=== PATIENT | female | born 1985 | race Caucasian/White ===

== ENCOUNTER 2021-08-01 16:57 | Outpatient (CLI) | payer OTHER ==
[2021-08-01 17:40] VITALS: BP 125/79; PULSE 89; RESP 16; TEMP 97.6
--- NOTE | 2021-08-05 07:26 | P.MSEPDOC ---
Presenting Problems - Arrival Data Date of Arrival on Unit: 08/01/21 Time of Arrival on Unit: 16:57 Mode of Transport: Ambulatory - Complaint OB-Reason for Admission/Chief Complaint: Pain Comment: lower abd and vaginal/rectal shooting pains Medical History - Information : 2 Para: 1 Number of Living Children: 1 - Gestational Age Gestational Age by CHARISSE (wks/days): 18 Weeks and 5 Days Review of Systems - Review of Systems Constitutional: No problems Breast: No problems ENT: No problems Cardiovascular: No problems Respiratory: No problems Gastrointestinal: No problems Genitourinary: No problems Musculoskeletal: No problems Neurological: No problems Skin: No problems Vital Signs - Temperature Temperature: 97.6 F Temperature Source: Temporal Artery Scan - Pulse Right Sitting Brachial Pulse Rate: 89 Pulse Assessment Method: Automatic Cuff - Respirations Respiratory Rate: 16 Oxygen Delivery Method: Room Air O2 Sat by Pulse Oximetry: 100 - Blood Pressure Right Arm Sitting Blood Pressure: 125/79 Blood Pressure Mean: 94 Blood Pressure Source: Automatic Cuff Medical Screen Scoring - Cervical Exam Dilation (cm): 0 Effacement (%): 0 Station: -3 Membranes: Intact - Uterine Contractions Frequency From (mins): 0 Frequency To (mins): 0 Duration From (seconds): 0 Duration To (seconds): 0 Intensity: Absent - Assessment - Baby A Baseline FHR: 138 Physician Notification - Physician Notified Physician Notified Date: 08/01/21 Physician Notified Time: 17:06 Physician: Cherie Young New Order Received: Yes - Notification Comment Comment: doppler fht's, check cervix Maternal Triage Index - Maternal Triage Index Presenting for scheduled procedure w/no complaint: No - Stat/Priority 1 Stat Priority 1: No - Urgent/Priority 2 Urgent Priority 2: No - Prompt/Priority 3 Prompt Priority 3: No - Non-Urgent/Priority 4 Non-Urgent Priority 4: Yes Criteria Met for Priority 4: non viable gestation, ligament pain Disposition - Disposition OB Disposition: Discharge to home Discharge Date: 08/01/21 Discharge Time: 17:25 I agree with the RN Medical Screening Exam: Yes Case reviewed; plan agreed upon as documented in EMR&OBIX.: Yes Diagnosis: GAS PAIN
== END 2021-08-01 17:25 | disposition home or self-care (01) ==
LOC: FBPOP 16:57
PROVIDERS: ATTEND Obstetrics & Gynecology
DX: O99.611 Diseases of the digestive system complicating pregnancy, first trimester (principal); Z3A.18 18 weeks gestation of pregnancy
CPT/HCPCS: 99203

== ENCOUNTER 2023-03-06 16:19 | Emergency (ER) | payer OTHER ==
--- NOTE | 2023-03-06 17:59 | ED ---
Recheck HPI - General Chief Complaint: Recheck/Abnormal Lab/Rx Stated Complaint: chest and throat tight Time Seen by Provider: 03/06/23 17:54 Source: patient, RN notes reviewed, old records reviewed Mode of arrival: ambulatory Limitations: no limitations - History of Present Illness Initial Comments: This is a 29-year-old female to the emergency department for evaluation. Patient presents with multiple nonspecific symptoms. No medical history takes no medications. Patient has tingling and tightness over face throat neck and chest. The symptoms happened initially 3 days ago and again today both happened during long car rides. Patient symptoms continue to persist on arrival to the emergency department. Otherwise no travel show sick contacts no medical history takes no medications. Symptoms are improving well here in the ER MD Complaint: other (Patient complains of numbness tingling and tightness) -: minutes(s) Symptoms Since Prior Visit: no new symptoms Context: planned re-check (No prior evaluation is no time with similar symptoms) Associated Symptoms: none Treatments Prior to Arrival: other (0) - Related Data Home Medications Medication Instructions Recorded Confirmed clonazePAM [KlonoPIN] 0.25 mg PO TID PRN 09/16/15 09/16/15 clonazePAM [KlonoPIN] 2 mg PO DAILY@2100 PRN 09/16/15 09/16/15 Previous Rx's Medication Instructions Recorded Escitalopram [Lexapro] 5 mg PO DAILY #14 tab 05/28/15 Mupirocin 2% Nasal Oint [Bactroban 1 applic NASAL TID #15 tube 09/16/15 Nasal Oint] Allergies Allergy/AdvReac Type Severity Reaction Status Date / Time Egg Derived Allergy Severe Unknown Verified 03/06/23 16:22 Sulfa (Sulfonamide Allergy Rash/Hives Verified 03/06/23 16:22 Antibiotics) amoxicillin trihydrate AdvReac Intermediate Nausea & Verified 03/06/23 16:22 [From Augmentin] Vomiting potassium clavulanate AdvReac Intermediate Nausea & Verified 03/06/23 16:22 [From Augmentin] Vomiting Review of Systems ROS Statement: Those systems with pertinent positive or pertinent negative responses have been documented in the HPI. ROS Other: All systems not noted in ROS Statement are negative. Past Medical History Past Medical History: Asthma, Supraventricular Tachycardia (SVT) Additional Past Medical History / Comment(s): intersticial cystitis, IBS with colon polyp History of Any Multi-Drug Resistant Organisms: None Reported Additional Past Surgical History / Comment(s): wisdom teeth pulled, polyp Additional Past Anesthesia/Blood Transfusion Reaction / Comment(s): Versed made it difficult to get O2 and b/p back up. Past Psychological History: Anxiety, Panic Disorder Smoking Status: Never smoker Past Alcohol Use History: Occasional Past Drug Use History: Marijuana - Past Family History Mother Family Medical History: Thyroid Disorder Additional Family Medical History / Comment(s): Hypothyroidism. Father Family Medical History: Coronary Artery Disease (CAD), Hypertension Additional Family Medical History / Comment(s): stent in heart,. testicular cancer in his 20's,. 8 pound tumor on aorta unknown if cancer. sinusitis. gout General Exam Limitations: no limitations General appearance: alert, in no apparent distress Head exam: Present: atraumatic, normocephalic, normal inspection Eye exam: Present: normal appearance, PERRL, EOMI. Absent: scleral icterus, conjunctival injection, periorbital swelling ENT exam: Present: normal exam, mucous membranes moist Neck exam: Present: normal inspection. Absent: tenderness, meningismus, lymphadenopathy Respiratory exam: Present: normal lung sounds bilaterally. Absent: respiratory distress, wheezes, rales, rhonchi, stridor Cardiovascular Exam: Present: regular rate, normal rhythm, normal heart sounds. Absent: systolic murmur, diastolic murmur, rubs, gallop, clicks GI/Abdominal exam: Present: soft, normal bowel sounds. Absent: distended, tenderness, guarding, rebound, rigid Extremities exam: Present: normal inspection, full ROM, normal capillary refill. Absent: tenderness, pedal edema, joint swelling, calf tenderness Back exam: Present: normal inspection Neurological exam: Present: alert, oriented X3, CN II-XII intact Psychiatric exam: Present: normal affect, normal mood Skin exam: Present: warm, dry, intact, normal color. Absent: rash Course Vital Signs 03/06/23 03/06/23 03/06/23 16:23 21:11 21:39 Temperature 98.4 F 98.2 F 98.6 F Pulse Rate 87 76 72 Respiratory 18 16 16 Rate Blood Pressure 148/91 128/73 127/78 O2 Sat by Pulse 100 99 99 Oximetry - Reevaluation(s) Reevaluation #1: 03/06/23 22:07 Medical records reviewed Reevaluation #2: 03/06/23 22:07 Patient has her improvement, resolution of symptoms here in the ER Reevaluation #3: 03/06/23 22:08 Patient informed results and questions answered Reevaluation #4: 03/06/23 17:58 Was pt. sent in by a medical professional or institution? @ -no Did you speak to anyone other than the patient for history? @ -no Did you review nursing and triage notes? @ -agree Were old charts reviewed? @ -no Differential Diagnosis? @ -prior EKG interpreted by me (3pts min.)? @ -yes X-rays interpreted by me (1pt min.)? @ -no CT interpreted by me (1pt min.)? @ -no U/S interpreted by me (1pt. min.)? @ -no What testing was considered but not performed? (CT, X-rays, U/S, labs)? Why? @ no What meds were considered but not given? Why? @ -none Did you discuss the management of the patient with other professionals? @ -no Did you reconcile home meds? @ -no Was smoking cessation discussed for >3mins.? @ -no Was critical care preformed (if so, how long)? @ -no Were there social determinants of health that impacted care today? How? (Homelessness, low income, unemployed, alcoholism, drug addiction, transportat ion, low edu. Level, literacy, decrease access to med. care, skilled nursing, rehab)? @ -no Was there de-escalation of care discussed even if they declined? (Discuss DNR or withdrawal of care, Hospice)? @ -no What co-morbidities impacted this encounter? (DM, HTN, Smoking, COPD, CAD, Cancer, CVA, Hep., AIDS, mental health diagnosis, sleep apnea, morbid obesity)? @ -none Was patient admitted / discharged? @ -dc Undiagnosed new problem with uncertain prognosis? @ -no Drug Therapy requiring intensive monitoring for toxicity (Heparin, Nitro, Insulin, Cardizem)? @ -none Were any procedures done? @ -no Diagnosis/symptom? @ -Paresthesia Acute, or Chronic, or Acute on Chronic? @ -acute Uncomplicated (without systemic symptoms) or Complicated (systemic symptoms)? @ -uncomplicated Side effects of treatment? @ -none Exacerbation, Progression, or Severe Exacerbation] @ - Poses a threat to life or bodily function? @ -no 03/06/23 22:08 Medical Decision Making - Medical Decision Making 37 female to the emergency department for evaluation of all tightness facial tightness neck tightness throat tightness chest tightness. No significant sympt oms here in the ER, no objective findings on physical exam and testing is normal. Patient can be discharged home - Lab Data Result diagrams: 03/06/23 19:26 03/06/23 19:26 Lab Results 03/06/23 03/06/23 03/06/23 Range/Units 19:00 19:26 19:26 WBC 10.2 (3.8-10.6) k/uL RBC 5.01 (3.80-5.40) m/uL Hgb 14.4 (11.4-16.0) gm/dL Hct 43.7 (34.0-46.0) % MCV 87.1 (80.0-100.0) fL MCH 28.7 (25.0-35.0) pg MCHC 32.9 (31.0-37.0) g/dL RDW 13.6 (11.5-15.5) % Plt Count 379 (150-450) k/uL MPV 7.0 Neutrophils % 58 % Lymphocytes % 33 % Monocytes % 6 % Eosinophils % 1 % Basophils % 0 % Neutrophils # 5.9 (1.3-7.7) k/uL Lymphocytes # 3.3 (1.0-4.8) k/uL Monocytes # 0.6 (0-1.0) k/uL Eosinophils # 0.1 (0-0.7) k/uL Basophils # 0.0 (0-0.2) k/uL VBG pH 7.34 (7.31-7.41) VBG pCO2 42 (37-51) mmHg VBG HCO3 22 L (24-28) mmol/L Carbon Monoxide, Quant (<10.0) % Sodium 138 (137-145) mmol/L Potassium 4.0 (3.5-5.1) mmol/L Chloride 106 (98-107) mmol/L Carbon Dioxide 22 (22-30) mmol/L Anion Gap 10 mmol/L BUN 12 (7-17) mg/dL Creatinine 0.80 (0.52-1.04) mg/dL Est GFR (CKD-EPI)AfAm >90 (>60 ml/min/1.73 sqM) Est GFR (CKD-EPI)NonAf >90 (>60 ml/min/1.73 sqM) Glucose 90 (74-99) mg/dL Calcium 9.0 (8.4-10.2) mg/dL Phosphorus 3.6 (2.5-4.5) mg/dL Magnesium 2.1 (1.6-2.3) mg/dL Total Bilirubin 0.5 (0.2-1.3) mg/dL AST 21 (14-36) U/L ALT 21 (4-34) U/L Alkaline Phosphatase 79 (38-126) U/L Troponin I (0.000-0.034) ng/mL Total Protein 7.2 (6.3-8.2) g/dL Albumin 4.5 (3.5-5.0) g/dL 03/06/23 03/06/23 Range/Units 19:26 19:26 WBC (3.8-10.6) k/uL RBC (3.80-5.40) m/uL Hgb (11.4-16.0) gm/dL Hct (34.0-46.0) % MCV (80.0-100.0) fL MCH (25.0-35.0) pg MCHC (31.0-37.0) g/dL RDW (11.5-15.5) % Plt Count (150-450) k/uL MPV Neutrophils % % Lymphocytes % % Monocytes % % Eosinophils % % Basophils % % Neutrophils # (1.3-7.7) k/uL Lymphocytes # (1.0-4.8) k/uL Monocytes # (0-1.0) k/uL Eosinophils # (0-0.7) k/uL Basophils # (0-0.2) k/uL VBG pH (7.31-7.41) VBG pCO2 (37-51) mmHg VBG HCO3 (24-28) mmol/L Carbon Monoxide, Quant 1.3 (<10.0) % Sodium (137-145) mmol/L Potassium (3.5-5.1) mmol/L Chloride (98-107) mmol/L Carbon Dioxide (22-30) mmol/L Anion Gap mmol/L BUN (7-17) mg/dL Creatinine (0.52-1.04) mg/dL Est GFR (CKD-EPI)AfAm (>60 ml/min/1.73 sqM) Est GFR (CKD-EPI)NonAf (>60 ml/min/1.73 sqM) Glucose (74-99) mg/dL Calcium (8.4-10.2) mg/dL Phosphorus (2.5-4.5) mg/dL Magnesium (1.6-2.3) mg/dL Total Bilirubin (0.2-1.3) mg/dL AST (14-36) U/L ALT (4-34) U/L Alkaline Phosphatase (38-126) U/L Troponin I <0.012 (0.000-0.034) ng/mL Total Protein (6.3-8.2) g/dL Albumin (3.5-5.0) g/dL - EKG Data -: EKG Interpreted by Me (EKG is sinus 72 [place] 152 QRS 92 QTC 414) Disposition Clinical Impression: Paresthesia Disposition: HOME SELF-CARE Condition: Good Instructions (If sedation given, give patient instructions): Paresthesia (ED) Is patient prescribed a controlled substance at d/c from ED?: No Referrals: Caryl Enciso MD [Primary Care Provider] - 1-2 days Time of Disposition: 21:00
[2023-03-06 19:57] LABS: Basophils % (A) 0 %; Eosinophils # (A) 0.1 k/uL (0-0.7); Eosinophils % (A) 1 %; HCT 43.7 % (34.0-46.0); HGB 14.4 gm/dL (11.4-16.0); Lymphocytes # (A) 3.3 k/uL (1.0-4.8); Lymphocytes % (A) 33 %; MCH 28.7 pg (25.0-35.0); MCHC 32.9 g/dL (31.0-37.0); MCV 87.1 fL (80.0-100.0); Monocytes # (A) 0.6 k/uL (0-1.0); Monocytes % (A) 6 %; Neutrophils # (A) 5.9 k/uL (1.3-7.7); Neutrophils % (A) 58 %; Platelet Count 379 k/uL (150-450); RBC 5.01 m/uL (3.80-5.40); RDW 13.6 % (11.5-15.5); WBC 10.2 k/uL (3.8-10.6)
[2023-03-06 20:01] LABS: ALT 21 U/L (4-34); AST 21 U/L (14-36); African American GFR (CKD) >90 (>60 ml/min/1.73 sqM); Albumin 4.5 g/dL (3.5-5.0); Alkaline Phosphatase 79 U/L (38-126); Anion Gap 10 mmol/L; Blood Urea Nitrogen 12 mg/dL (7-17); Carbon Dioxide 22 mmol/L (22-30); Chloride 106 mmol/L (98-107); Glucose 90 mg/dL (74-99); Magnesium 2.1 mg/dL (1.6-2.3); Non-African American GFR(CKD) >90 (>60 ml/min/1.73 sqM); Phosphorus 3.6 mg/dL (2.5-4.5); Sodium 138 mmol/L (137-145); Total Bilirubin 0.5 mg/dL (0.2-1.3); Total Protein 7.2 g/dL (6.3-8.2)
[2023-03-06 20:47] LABS: VBG PH 7.34 (7.31-7.41)
[2023-03-06 21:12] VITALS: RESP 16
[2023-03-06 21:41] VITALS: BP 127/78; PULSE 72; TEMP 98.6
== END 2023-03-06 21:41 | disposition home or self-care (01) ==
LOC: EC 16:19
DX: R20.2 Paresthesia of skin (principal); J45.909 Unspecified asthma, uncomplicated; F41.9 Anxiety disorder, unspecified; F12.90 Cannabis use, unspecified, uncomplicated; Z91.012 Allergy to eggs; Z88.2 Allergy status to sulfonamides; Z88.0 Allergy status to penicillin; Z88.1 Allergy status to other antibiotic agents
CPT/HCPCS: 36415; 80053; 82375; 82803; 83735; 84100; 84484; 85025; 93005; 99283

== ENCOUNTER 2025-02-26 09:03 | Emergency (ER) | payer OTHER ==
[2025-02-26 09:08] VITALS: TEMP 98.2
[2025-02-26] MEDS ORDERED: RX INFO: IV CONTRAST WAS GIVEN 1 EACH MISC MISCELLANE PRN (10:14)
[2025-02-26] MEDS: DEXAMETHASONE SOD PHOSPHATE 10 MG/ML 1 ML VIAL IVP STA (10:39)
[2025-02-26] MEDS: SODIUM CHLORIDE 0.9% 1,000 ML IV ONE (10:39)
[2025-02-26] MEDS: PROCHLORPERAZINE INJ 10 MG/2 ML VIAL IVP STA (10:40)
[2025-02-26] MEDS: diphenhydrAMINE 50 MG/ML 1 ML VIAL IVP STA (10:40)
[2025-02-26] MEDS: KETOROLAC 15 MG/ML 1 ML VIAL IVP STA (10:40)
[2025-02-26 10:44] LABS: Basophils # (A) 0.07 10*3/uL (0.00-0.10); Basophils % (A) 0.7 %; Eosinophils # (A) 0.15 10*3/uL (0.04-0.35); Eosinophils % (A) 1.4 %; HGB 13.6 g/dL (12.0-15.0); Lymphocytes # (A) 4.61 10*3/uL (0.90-5.00); Lymphocytes % (A) 44.2 %; MCH 29.5 pg (27.0-32.0); MCHC 33.2 g/dL (32.0-37.0); MCV 88.9 fL (80.0-97.0); Mean Platelet Volume 9.3 fL (9.5-12.2); Monocytes # (A) 1.01 10*3/uL (0.20-1.00); Monocytes % (A) 9.7 %; Neutrophils # (A) 4.56 10*3/uL (1.80-7.70); Neutrophils % (A) 43.7 %; Platelet Count 396 10*3/uL (140-440); RBC 4.61 10*6/uL (4.10-5.20); RDW 13.4 % (11.5-14.5); WBC 10.43 10*3/uL (4.50-10.00)
[2025-02-26 10:54] LABS: ALT 17 U/L (4-34); AST 18 U/L (14-36); African American GFR (CKD) >90 (>60 ml/min/1.73 sqM); Albumin 4.2 g/dL (3.5-5.0); Alkaline Phosphatase 48 U/L (38-126); Anion Gap 8 mmol/L; Blood Urea Nitrogen 11 mg/dL (7-17); C Reactive Protein <0.5 mg/dL (<1.0); Calcium 9.1 mg/dL (8.4-10.2); Carbon Dioxide 24 mmol/L (22-30); Chloride 107 mmol/L (98-107); Glucose 84 mg/dL (74-99); Non-African American GFR(CKD) >90 (>60 ml/min/1.73 sqM); Potassium 3.8 mmol/L (3.5-5.1); Sodium 139 mmol/L (137-145); Total Bilirubin 0.6 mg/dL (0.2-1.3); Total Protein 6.7 g/dL (6.3-8.2)
[2025-02-26 11:04] LABS: HCG,Qualitative Serum Not Detected
[2025-02-26 11:07] VITALS: RESP 12
--- NOTE | 2025-02-26 11:28 | ED ---
Dizziness HPI - General Chief Complaint: Dizziness Stated Complaint: Dizziness,headache Time Seen by Provider: 02/26/25 09:11 Source: patient, RN notes reviewed Mode of arrival: ambulatory Limitations: no limitations - History of Present Illness Initial Comments: This is a 39-year-old female who presents to the emergency department for dizziness, headaches, and confusion. Patient states that for the last couple of months she has been dealing with pain and pressure in the back of her head going down her neck. This seems to be occurring intermittently. She notices mental fog and confusion with this as well. She has been increasingly forgetful. A dditionally, she has noticed other arbitrary symptoms such as rashes that breakout across her body. She had gone to an emergency department recently due to neurological symptoms with numbness down the right arm. They did a CT scan and laboratory workup which was negative. She followed up with her neurologist who ordered an MRI to be done in the next couple of weeks. She is concerned that symptoms are continuing to persist and they do not know what is causing it. They had also mentioned testing her for Lyme disease. She does note that when she is treated with steroids she seems to have some improvement. She has also noticed that she constantly feels like things are crawling around her body and at one point she had a bowel movement with a worm in it. They were then treating her with antiparasitic medication as well. - Related Data Home Medications Medication Instructions Recorded Confirmed clonazePAM [KlonoPIN] 0.25 mg PO TID PRN 09/16/15 09/16/15 clonazePAM [KlonoPIN] 2 mg PO DAILY@2100 PRN 09/16/15 09/16/15 Previous Rx's Medication Instructions Recorded Escitalopram [Lexapro] 5 mg PO DAILY #14 tab 05/28/15 Mupirocin 2% Nasal Oint [Bactroban 1 applic NASAL TID #15 tube 09/16/15 Nasal Oint] Cyclobenzaprine [Flexeril] 5 - 10 mg PO TID PRN #30 tablet 02/26/25 Ketorolac [Toradol] 10 mg PO Q6HR PRN #15 tab 02/26/25 Allergies Allergy/AdvReac Type Severity Reaction Status Date / Time Egg Derived Allergy Severe Unknown Verified 03/06/23 16:22 Sulfa (Sulfonamide Allergy Rash/Hives Verified 03/06/23 16:22 Antibiotics) amoxicillin trihydrate AdvReac Intermediate Nausea & Verified 03/06/23 16:22 [From Augmentin] Vomiting potassium clavulanate AdvReac Intermediate Nausea & Verified 03/06/23 16:22 [From Augmentin] Vomiting Review of Systems ROS Statement: Those systems with pertinent positive or pertinent negative responses have been documented in the HPI. ROS Other: All systems not noted in ROS Statement are negative. Past Medical History Past Medical History: Asthma, Supraventricular Tachycardia (SVT) Additional Past Medical History / Comment(s): intersticial cystitis, IBS with colon polyp History of Any Multi-Drug Resistant Organisms: None Reported Additional Past Surgical History / Comment(s): wisdom teeth pulled, polyp Additional Past Anesthesia/Blood Transfusion Reaction / Comment(s): Versed made it difficult to get O2 and b/p back up. Past Psychological History: Anxiety, Panic Disorder Smoking Status: Never smoker Past Alcohol Use History: Occasional Past Drug Use History: Marijuana - Past Family History Mother Family Medical History: Thyroid Disorder Additional Family Medical History / Comment(s): Hypothyroidism. Father Family Medical History: Coronary Artery Disease (CAD), Hypertension Additional Family Medical History / Comment(s): stent in heart,. testicular cancer in his 20's,. 8 pound tumor on aorta unknown if cancer. sinusitis. gout General Exam Limitations: no limitations General appearance: alert, in no apparent distress Head exam: Present: atraumatic, normocephalic, normal inspection Eye exam: Present: normal appearance, PERRL, EOMI. Absent: scleral icterus, conjunctival injection, periorbital swelling Respiratory exam: Present: normal lung sounds bilaterally. Absent: respiratory distress, wheezes, rales, rhonchi, stridor Cardiovascular Exam: Present: regular rate, normal rhythm GI/Abdominal exam: Present: soft, normal bowel sounds. Absent: distended, tenderness, guarding, rebound, rigid Neurological exam: Present: alert, oriented X3, CN II-XII intact Psychiatric exam: Present: normal affect, normal mood Skin exam: Present: warm, dry, intact, normal color. Absent: rash Course Vital Signs 02/26/25 02/26/25 02/26/25 09:04 10:47 13:05 Temperature 98.2 F Pulse Rate 105 H 94 75 Respiratory 20 12 12 Rate Blood Pressure 152/94 123/87 107/75 O2 Sat by Pulse 97 100 99 Oximetry Medical Decision Making - Medical Decision Making This is a 39 year old female who presents to the emergency department for headaches and dizziness. Was pt. sent in by a medical professional or institution? @ -No Did you speak to anyone other than the patient for history? @ -No Did you review nursing and triage notes? @ -Yes, and I agree, it is accurate with regards to the patient's symptoms. Were old charts reviewed? @ -No Differential Diagnosis? @ -Differential Headache: Migraine, tension, cluster, carbon monoxide, central venous thrombosis, pension karma temporal arteritis, acute closure glaucoma, intercranial hemorrhage, mastoiditis, sinusitis, head injury, this is not meant to be an all-inclusive list. EKG interpreted by me (3pts min.)? @ -Not obtained X-rays interpreted by me (1pt min.)? @ -Not obtained CT interpreted by me (1pt min.)? @ -CT scan of the brain and cervical spine obtained. My interpretation identifies no acute intracranial hemorrhage or cervical spine fracture. U/S interpreted by me (1pt. min.)? @ -Not obtained What testing was considered but not performed? (CT, X-rays, U/S, labs)? Why? @ -None What meds were considered but not given? Why? @ -None Did you discuss the management of the patient with other professionals? @ -No Did you reconcile home meds? @ -No Was smoking cessation discussed for >3mins.? @ -No Was critical care preformed (if so, how long)? @ -No Were there social determinants of health that impacted care today? How? (Homelessness, low income, unemployed, alcoholism, drug addiction, transporta tion, low edu. Level, literacy, decrease access to med. care, [facility], rehab)? @ -No Was there de-escalation of care discussed even if they declined? (Discuss DNR or withdrawal of care, Hospice)? @ -No What co-morbidities impacted this encounter? (DM, HTN, Smoking, COPD, CAD, Cancer, CVA, Hep., AIDS, mental health diagnosis, sleep apnea, morbid obesity)? @ -None Was patient admitted / discharged? @ -Discharged. Lab work unremarkable. CT scan of the brain and C-spine obtained revealing no acute process. Symptoms were treated in the emergency department. Discussed the possibility of MS or other autoimmune problem contributing to her multiple nonspecific symptoms. She does have an MRI scheduled for 03/14 and I advised she follow-up as scheduled. Toradol and Flexeril prescribed for management of any additional symptoms. Patient discharged home in stable condition. Case discussed with ED attending Dr. Cain. Return precautions reviewed in depth, the patient is instructed to return to the emergency department with any new, worsening, or concerning symptoms. Patient verbalized understanding. Undiagnosed new problem with uncertain prognosis? @ -None Drug Therapy requiring intensive monitoring for toxicity (Heparin, Nitro, Insulin, Cardizem)? @ -None Were any procedures done? @ -None Diagnosis/symptom? @ -Headache, dizziness, neck pain Acute, or Chronic, or Acute on Chronic? @ -Chronic Uncomplicated (without systemic symptoms) or Complicated (systemic symptoms)? @ -Uncomplicated Side effects of treatment? @ -None Exacerbation, Progression, or Severe Exacerbation] @ -Exacerbation Poses a threat to life or bodily function? @ -Unlikely - Lab Data Result diagrams: 02/26/25 10:34 02/26/25 10:34 Lab Results 02/26/25 02/26/25 Range/Units 10:34 10:34 WBC 10.43 H (4.50-10.00) 10*3/uL RBC 4.61 (4.10-5.20) 10*6/uL Hgb 13.6 (12.0-15.0) g/dL Hct 41.0 (37.2-46.3) % MCV 88.9 (80.0-97.0) fL MCH 29.5 (27.0-32.0) pg MCHC 33.2 (32.0-37.0) g/dL Plt Count 396 (140-440) 10*3/uL MPV 9.3 L (9.5-12.2) fL Immature Gran % (Auto) 0.3 % Neutrophils % 43.7 % Lymphocytes % 44.2 % Monocytes % 9.7 % Eosinophils % 1.4 % Basophils % 0.7 % Immature Gran # 0.03 (0.00-0.04) 10*3/uL Neutrophils # 4.56 (1.80-7.70) 10*3/uL Lymphocytes # 4.61 (0.90-5.00) 10*3/uL Monocytes # 1.01 H (0.20-1.00) 10*3/uL Eosinophils # 0.15 (0.04-0.35) 10*3/uL Basophils # 0.07 (0.00-0.10) 10*3/uL Sodium 139 (137-145) mmol/L Potassium 3.8 (3.5-5.1) mmol/L Chloride 107 (98-107) mmol/L Carbon Dioxide 24 (22-30) mmol/L Anion Gap 8 mmol/L BUN 11 (7-17) mg/dL Creatinine 0.78 (0.52-1.04) mg/dL Est GFR (CKD-EPI)AfAm >90 (>60 ml/min/1.73 sqM) Est GFR (CKD-EPI)NonAf >90 (>60 ml/min/1.73 sqM) Glucose 84 (74-99) mg/dL Calcium 9.1 (8.4-10.2) mg/dL Total Bilirubin 0.6 (0.2-1.3) mg/dL AST 18 (14-36) U/L ALT 17 (4-34) U/L Alkaline Phosphatase 48 (38-126) U/L C-Reactive Protein <0.5 (<1.0) mg/dL Total Protein 6.7 (6.3-8.2) g/dL Albumin 4.2 (3.5-5.0) g/dL TSH 4.130 (0.465-4.680) mIU/L HCG, Qual Not Detected - Radiology Data Radiology results: report reviewed, image reviewed Disposition Clinical Impression: Headache, Neck pain, Dizziness Disposition: HOME SELF-CARE Additional Instructions: Return to the emergency department with any new, worsening, or concerning symptoms. Take the Toradol with Tylenol as needed for pain relief. If you choose to take the Toradol, do not take any other anti-inflammatories such as ibuprofen, take one or the other. You can take the Flexeril as 1 to 2 tablets up to 3 times daily if you develop any tightness/stiffness. Follow-up with your primary care provider and neurologist. Prescriptions: Cyclobenzaprine [Flexeril] 5 - 10 mg PO TID PRN #30 tablet PRN Reason: Pain Ketorolac [Toradol] 10 mg PO Q6HR PRN #15 tab PRN Reason: Pain Is patient prescribed a controlled substance at d/c from ED?: No Referrals: Caryl Enciso MD [Primary Care Provider] - 1-2 days Time of Disposition: 12:51
--- NOTE | 2025-02-26 11:46 | CT ---
EXAMINATION TYPE: CT brain w con CT DLP: 1064 mGycm, Automated exposure control for dose reduction was used. DATE OF EXAM: 02/26/2025 11:25 AM COMPARISON: None. CLINICAL INDICATION:Female, 39 years old with history of Head and neck pain; PHH, Head and neck pain and pressure. No injury. Confusion. Rt side facial numbness. TECHNIQUE: Axial CT images of the brain were obtained after the uneventful administration of 100 cc o f Isovue-[address] or more [address] dose reduction strategies were utilized during this examin ation. Coronal and sagittal reformats reviewed. FINDINGS: Extra-axial spaces: No abnormal extra-axial fluid collections. Ventricular system: Within normal limits Cerebral parenchyma: No acute intraparenchymal hemorrhage or mass effect. The alfaro-white junction is well differentiated. No abnormal enhancement is seen after the administration of intravenous contras t. Cerebellum: Unremarkable. Mass effect: No evidence of midline shift. Intracranial vasculature: unremarkable Soft tissues: Normal. Calvarium/osseous structures: No depressed skull fracture. Paranasal sinuses and mastoid air cells: Clear. Visualized orbits: Orbital contents are intact. IMPRESSION: No acute intracranial process or abnormal contrast enhancement. [facility], , 02/26/2025 11:44 AM
--- NOTE | 2025-02-26 11:49 | CT ---
EXAMINATION TYPE: CT cervical spine w con CT DLP: 280.5 mGycm, Automated exposure control for dose reduction was used. DATE OF EXAM: 02/26/2025 11:25 AM COMPARISON: CT brain of the same date. CLINICAL INDICATION:Female, 39 years old with history of Head and neck pain; PHH, Head and neck pain and pressure. No injury. Confusion. Rt side facial numbness., pain TECHNIQUE: Axial CT images from the skull base to the inferior aspect of T2 we obtained after the une ventful administration of 100 mL of Isovue-300 intravenously. Coronal and sagittal reformatted images were also reviewed. FINDINGS: Fracture: None. Osseous structures: Incomplete fusion of the posterior arch of C1. Vertebral alignment: Within normal limits. Spinal canal/Neural Foramina: No evidence of significant spinal canal narrowing. No evidence for sign ificant neural foraminal stenosis. Neck soft tissues: Prevertebral soft tissues are within normal limits. No enlarged lymph nodes greate r than 1 cm short axis. Left palatine tonsillith. Vascular: Patent. Other: The airway is patent. The lung apices are clear. IMPRESSION: 1. No evidence of cervical spine fracture. 2. No abnormal contrast enhancement. [facility], , 02/26/2025 11:47 AM
[2025-02-26 13:07] VITALS: BP 107/75; PULSE 75
[2025-02-27 08:14] LABS: Erythrocyte Sedimentation Rate 3 mm/Hr (0-20)
== END 2025-02-26 13:07 | disposition home or self-care (01) ==
LOC: EC 09:03
DX: R42 Dizziness and giddiness (principal); R51.9 Headache, unspecified; M54.2 Cervicalgia; Z88.0 Allergy status to penicillin; Z88.1 Allergy status to other antibiotic agents; Z88.2 Allergy status to sulfonamides; Z91.012 Allergy to eggs; Z88.8 Allergy status to other drugs, medicaments and biological substances
CPT/HCPCS: 36415; 80053; 85652; 84443; 85025; 86140; 84703; 86618; 86780; 72126; 70460; 99284; 96374; 96375; 96361; J1200; J0780; J1100; J1885; Q9967